=== PATIENT | male | born 1980 | race African-American/Black ===

== ENCOUNTER 2024-11-19 18:07 | Outpatient (BNV) | payer MEDICAID, SELFPAY | END 2024-11-25 11:15 | PROVIDERS: Admitting Provider Psychiatry & Neurology Psychiatry; Visit Provider Psychiatry & Neurology Neurology | DX: G40.909 Epilepsy, unspecified, not intractable, without status epilepticus (principal) | CPT/HCPCS: 95816 ==

== ENCOUNTER 2024-11-19 18:07 | Inpatient (IN) | payer OTHER, SELFPAY ==
--- NOTE | ~2024-11-19 | XR_ITS ---
CLINICAL HISTORY: s p fall 3 views sacrum and coccyx Comparison: None provided Findings No acute fractures. SI joints maintained. Pelvic rings are intact. No significant degenerative change. No erosions. IMPRESSION: No acute findings This document has been electronically signed by: Tania Beyer MD on 11/23/2024 04:24:11
--- NOTE | ~2024-11-19 | CT_ITS ---
CLINICAL HISTORY: s p fall CT cervical spine without contrast Comparison: None provided Findings: Straightening of the normal cervical lordosis. Multilevel disc height loss with reactive endplate change and osteophyte formation greatest at C3-4 and C4-5. No acute fractures or dislocations. Visualized intracranial contents are unremarkable. Soft tissues of the neck are normal. No consolidation or effusion at the lung apices. IMPRESSION: Degenerative change of the upper/mid cervical spine. No acute fracture identified. This document has been electronically signed by: Tania Beyer MD on 11/23/2024 04:53:59
--- NOTE | ~2024-11-19 | XR_ITS ---
CLINICAL HISTORY: s p fall 3 views lumbar spine Comparison: None provided Findings: Normal vertebral body alignment. No acute fractures or dislocation. Mild disc height loss at L1-2 with reactive endplate changes. IMPRESSION: No acute alignment abnormalities or vertebral body height loss. Degenerative changes in the upper lumbar spine. This document has been electronically signed by: Tania Beyer MD on 11/23/2024 04:24:17
--- NOTE | ~2024-11-19 | XR_ITS ---
CLINICAL HISTORY: s p fall 3 views thoracic spine Comparison: None provided Findings: Normal vertebral body alignment. No acute fractures or dislocation. Multilevel disc height loss with reactive endplate change. IMPRESSION: Mild multilevel degenerative change. No vertebral body height loss. This document has been electronically signed by: Tania Beyer MD on 11/23/2024 04:19:27
--- NOTE | ~2024-11-19 | CT_ITS ---
CLINICAL HISTORY: s p fall CT head without contrast Comparison: None provided Findings: No intra-axial mass, midline shift, hydrocephalus, or acute hemorrhage. No significant atrophy-like change or white matter disease. The visualized paranasal sinuses and mastoid air cells are normal. The orbits are unremarkable. There is no acute fracture. IMPRESSION: 1. No acute intracranial findings. This document has been electronically signed by: Tania Beyer MD on 11/23/2024 04:28:17
--- OUTSIDE RECORDS SUMMARY | 2024-11-19 18:12 | XMS_ITS | Clinical Summary ---
Author Organization [address] Address [address] [place] [address] Phone Care Team Providers Care Research Physician Name Role Phone Sue Rutherford NP Primary Care Provider [phone] Allergies Active Allergy Reactions Criticality Noted Date Comments [place] [facility] Shock 10/15/2023 Penicillins Anaphylaxis High 10/15/2023 Risperidone Hives High 10/15/2023 Tramadol Hives High 10/15/2023 Hydrocodone-Acetaminophen Hives High 10/15/2023 Medications blood-glucose meter device Use as directed. 1 each 4 Active insulin syringes, disposable, 1 mL syringe Use as directed. 50 each 4 Active insulin glargine (LANTUS) 100 unit/mL vial Inject 25 Units under the skin nightly. 10 mL 4 Active divalproex (DEPAKOTE ER) 500 mg 24 hr extended release tablet Take 1 tablet (500 mg total) by mouth 2 (two) times daily. 60 tablet 4 Active omeprazole (PRILOSEC) 20 mg capsule Take 1 capsule (20 mg total) by mouth daily. 30 capsule 4 Active atorvastatin (LIPITOR) 20 mg tablet Take 1 tablet (20 mg total) by mouth daily. 30 tablet 4 Active folic acid (FOLVITE) 1 mg tablet Take 1 tablet (1 mg total) by mouth daily. 30 tablet 4 Active gabapentin (NEURONTIN) 400 mg capsule Take 1 capsule (400 mg total) by mouth 2 (two) times daily with breakfast and dinner. 60 capsule 4 Active Additional Information Patient taking differently:400 mg Oral3 Times Daily With Meals, Reported on 01/06/2024 sertraline (ZOLOFT) 50 mg tablet Take 1 tablet (50 mg total) by mouth daily. 30 tablet 4 Active thiamine (VITAMIN B1) 100 mg tablet Take 1 tablet (100 mg total) by mouth daily. 30 tablet 4 Active albuterol sulfate (PROAIR HFA) 90 mcg/actuation HFA aerosol inhaler Inhale 2 puffs into the lungs every 6 (six) hours as needed for wheezing. Active baclofen (LIORESAL) 20 mg tablet Take 1 tablet (20 mg total) by mouth 3 (three) times daily. 4 Active chlorproMAZINE (THORAZINE) 50 mg tablet Take 3 tablets (150 mg total) by mouth 2 (two) times daily. 0800 & 1600 4 Active lisinopriL (PRINIVIL,ZESTR IL) 5 mg tablet Take 1 tablet (5 mg total) by mouth daily. 4 Active hydrOXYzine (VISTARIL) 50 mg capsule Take 1 capsule (50 mg total) by mouth 4 (four) times daily as needed. Active metFORMIN (GLUCOPHAGE) 500 mg Immediate Release tablet Take 1 tablet (500 mg total) by mouth 2 (two) times daily with breakfast and dinner. 4 Active cholecalciferol , vitamin D3, 50 mcg (2,000 unit) tablet Take 1 tablet (2,000 Units total) by mouth daily. Active magnesium oxide (MAG-OX) 400 mg (241.3 mg magnesium) tablet Take 1 tablet (400 mg total) by mouth daily. 4 Active Active Problems Problem Noted Date Diagnosed Date Alcohol withdrawal delirium, acute, hyperactive (HC Code) 01/15/2024 Abdominal pain 01/15/2024 Diabetes mellitus (HC Code) 01/15/2024 Cocaine abuse 01/07/2024 Schizoaffective disorder, depressive type (HC Co de) 01/07/2024 Alcohol abuse 01/07/2024 Chest pain, unspecified type 12/12/2023 Polysubstance use disorder 12/12/2023 Primary hypertension 12/12/2023 HOCM (hypertrophic obstructive cardiomyopathy) ( HC Code) 12/12/2023 Chest pain 12/06/2023 Colitis 11/29/2023 Alcohol dependence with withdrawal 10/15/2023 Resolved Problems Problem Noted Date Diagnosed Date Resolved Date MDD (major depressive disord er), recurrent episode, moderate (HC Code) 01/06/2024 01/07/2024 Schizophrenia 01/06/2024 01/07/2024 PTSD (post-traumatic stress disorder) 12/14/2023 01/07/2024 Family History Relation Name Status Comments Sister Alive Social History Tobacco Use Types Packs/Day Years Used Date Smoking Tobacco: Former Cigarettes Tobacco Cessation:Counseling Given: Not Answered Alcohol Use Standard Drinks/Week Comments Yes 4 (1 standard drink = 0.6 oz pur e alcohol) [facility] Neokineticsities Answer Date Recorded In the past 12 months has [employer], gas, oil, or water [employer] threatened to shut off services in your home? No 01/16/2024 AUDIT-C Answer Date Recorded Q1: How often do you have a drink containing alcohol? 4 or more times a week 01/16/2024 Q2: How many drinks containi ng alcohol do you have on a typical day when you are drinking? 3 or 4 Q3: How often do you have si x or more drinks on one occasion? Weekly 01/16/2024 PHQ-2 Answer Date Recorded PHQ-2 Total Score 0 01/16/2024 Hunger Vital Sign Answer Date Recorded Within the past 12 months, y ou worried that your food would run out before you got the money to buy more. Never true 01/16/20 24 Within the past 12 months, t he food you bought just didn't last and you didn't have money to get more. Never true 01/16/2024 PRAPARE - Transportation Answer Date Re corded In the past 12 months, has l ack of transportation kept you from medical appointments or from getting medications? No 01/05 In the past 12 months, has l ack of transportation kept you from meetings, work, or from getting things needed for daily living? No 01/16/2024 Housing Stability Answer Date Recorded What is your living situation today? I have a [facility] place to live 01/16/2024 Housing Stability Not on file 01/16/2024 Interpersonal Safety Answer Date Record ed Is there anyone in your life that is hurting or threatening you in anyway? no 01/16/2024 Physical Indicators of Abuse No evidence of phys ical abuse 01/16/2024 Sex and Gender Information Value Date Recorded Sex Assigned at Male 01/06/2024 1:26 AM EDT Legal Sex Male 1:26 AM EDT Gender Identity Male 01/06/2024 1:26 AM EDT Sexual Orientation Straight 01/06/2024 1: 26 AM EDT Last Filed Vital Signs Vital Sign Reading Time Taken Comments Blood Pressure 111/71 01/21/2024 5:33 AM EDT Pulse 94 01/21/2024 5:33 AM EDT Temperature 36.7 C (98.1 F) 01/21/2024 5:33 AM EDT Respiratory Rate 18 01/21/2024 5:33 AM EDT Oxygen Saturation 97% 01/21/2024 5:33 AM EDT Inhaled Oxygen Concentration - - Weight 104.3 kg (230 lb) 01/16/2024 3:41 PM EDT Height 185.4 cm (6' 1 ) 01/16/2024 3:41 PM EDT Body Mass Index 30.34 01/16/2024 3:41 PM EDT Plan of Treatment Health Maintenance Due Date Last Done Comments Diabetic eye exam 07/25/1989 Diabetic foot exam 07/25/1989 Urine Microalbumin 07/25/1989 Hepatitis B vaccine series ( 1 of 3 - 19+ 3-dose series) 07/25/1998 Pneumococcal Vaccine (2 - 49 years) (1 of 2 - PCV) 07/25/1998 Tetanus adult (Td q 10,TDAP once) 1999 Covid-19 vaccine series ( - 2023- season) 2024 Hemoglobin A1C 07/15/2024 01/16/2024, 11/09/2023, 10/15/2023 Colon cancer screening, Colonoscopy 07/25/2024 LDL monitoring 10/14/2024 10/15/2023 Influenza vaccine 01/05/2025 RSV Immunization (1 - 1-dose 75+ series) 07/25/2054 Hepatitis C screening Completed 12/18/2023 HIV screening Completed 12/19/2023 Meningococcal Vaccine Aged Out No donta janice eligible based on patient's age to complete this topic Procedures Procedure Name Priority Date/Time Associated Diagnosis Comments HEMOGLOBIN A1C Routine 01/16/2024 5:47 AM EDT HIV-1/HIV-2 ANTIBODY/ANTIGEN SCREEN W/REFLEX (BH GH LMW YH) Routine 12/19/2023 4:37 AM EDT HEPATITIS C AB WITH REFLEX TO HCV PCR Urgent 12/18/2023 4:33 PM EDT LIPID PANEL Add-On 10/15/2023 4:00 PM EDT from Last 3 Months or Most Recently Relevant to Health Maintenance Results * (ABNORMAL) Hemoglobin A1c (01/16/2024 5:47 AM EDT) Hemoglobin A1c 8.6(H) 4.0 - 5.6 % 01/16/2024 12:07 PM [facility] Comment: Hemoglobin A1c values of 5.7-6.4 % identify individuals with an increased risk for future diabetes and to whom the term pre-diabetes may be applied. Hemoglobin A1c values greater than 6.4% on more than one occasion are diagnostic of diabetes. Lowering HbA1c to below 7% is considered to reduce microvascular and neuropathic complications of diabetes. This boronate affinity Hb A1c method provides accurate analytical results in the presence of nearly all Hb variants. Hb F higher than 10% of total Hb may yield falsely low results. Conditions that shorten red cell survival, such as the presence of unstable hemoglobins like Hb SS, Hb CC, and Hb SC, or other causes of hemolytic anemia may yield falsely low results. Iron deficiency anemia may yield falsely high results. Estimated Average Glucose mg/dL 200 mg/dL 01/16/2024 12:07 PM [facility] Comment: Estimated average glucose (eAG) is a calculated value designed to estimate the expected average blood glucose level throughout the day from a single measurement of glycated hemoglobin A1C (HbA1c) and follows the calculation proposed by the [place] [employer] (Diabetes Care 31: 1-6, 2008). It may have less accuracy in children, women and patients with certain erythrocyte disorders. Blood Venipuncture / Unknown 01/16/2024 5:47 AM EDT 01/16/2024 5:55 AM EDT Edilma Meadows MD LAB BLOOD ORDERABLES Final Res ult [address] [phone] * HIV-1/HIV-2 antibody/antigen screen w/reflex ([facility]) (12/19/2023 4:37 AM EDT) HIV 1 and 2 Antibody/Antigen Screen Negative Negative 12/19/2023 8:38 AM EDT [facility] Comment:Interpretation: This specimen is HIV antibody and antigen negative. A negative test does not exclude the possibility of infection with HIV. If suspicion is high, submit a sample for HIV nucleic acid testing. Negative results may be seen in early infection, advanced AIDS and agammaglobulinemic patients, among others. Antiretroviral drugs taken for treatment and prophylaxis may limit the ability of diagnostic tests to detect HIV infection. The performance of this assay has not been clinically validated in patients less than 2 years old. Blood Venipuncture / Unknown 12/19/2023 4:37 AM EDT 12/19/2023 5:27 AM EDT Leonard Sen MD LAB BLOOD ORDERABLES Berkley l Result Performing Organization Address City/[facility]/ZIP Co de Phone Number [facility] [address] [place] [address] * Hepatitis C Ab with reflex to HCV PCR (12/18/2023 4:33 PM EDT) Hepatitis C Antibody Negative Negative 12/18/2023 7:10 PM EDT [facility] Comment:A negative result do es not exclude HCV infection, since antibodies are not detectable for 4-8 weeks after initial infection, or may not develop in compromised hosts. In high-risk individuals, repeat antibody testing in 2 months and/or HCV RNA PCR should be considered. Blood Venipuncture / Unknown 12/18/2023 4:33 PM EDT 12/18/2023 4:50 PM EDT us Leonard Sen MD LAB BLOOD ORDERABLES Berkley jordy Result [facility] [address] [place] [address], [facility] [phone] * (ABNORMAL) Lipid panel (10/15/2023 4:00 PM EDT) Cholesterol 185 See Comment mg/dL 10/16/2023 12:49 AM [facility] Comment: Total Cholesterol (mg/dL) Adults (>18 years) Children (<18 years) Desirable <200 <170 Borderline-High 200-239 170-199 High >=240 >=200 HDL 37(L) >=40 mg/dL 10/16/2023 12:49 AM [facility] Triglycerides 228(H) See Comment mg/dL 10/16/2023 12:49 AM [facility] Comment: Triglycerides (mg/dL) Adults (>18 years) Children (<18 years) Desirable <150 Not Established Borderline-High 150-199 Not Established High 200-499 Not Established Chol/HDL Ratio 5.0 0.0 - 5.0 10/16/2023 12:49 AM [facility] LDL Calculated 108(H) See Comment mg/dL 10/16/2023 12:49 AM [facility] Comment: Effective 10/12/2021, LDL is calculated using the Galaviz-JUNI equation, which is more accurate than the Friedewald and Jace-Phillips equations. LDL Cholesterol (mg/dL) Adults (>18 years) Children (<18 years) Desirable <100 <110 Above Desirable 100-129 Not Established Borderline-High 130-159 110-129 High 160-189 >=130 Very High >=190 Not Established Blood Venipuncture / Unknown 10/15/2023 4:00 PM EDT 10/15/2023 4:[address] [facility] Otilio Price MD LAB BLOOD ORDERABLES Final Result [address] [phone] from Last 3 Months or Most Recently Relevant to Health Maintenance Insurance [place] Advance Directives * Full Code (Latest Code Status on File) Date Activated Date Inactivated Comments 01/15/2024 10:02 PM 01/21/2024 5:41 PM * Full Code Date Activated Date Inactivated Comments 12/18/2023 7:14 PM 12/21/2023 2:56 PM * Full Code Date Activated Date Inactivated Comments 12/12/2023 2:26 PM 12/15/2023 3:17 PM Question Answer Comments With Whom was the Code Status Discussed? Patient * Full Code Date Activated Date Inactivated Comments 12/06/2023 3:48 AM 12/07/2023 8:50 PM * Full Code Date Activated Date Inactivated Comments 11/29/2023 8:35 PM 12/01/2023 7:37 PM Care Teams Research Physician Relationship Specialty Start Date End Date Sue Rutherford NP [address] [place] [address] PCP - General 11/13/23
[2024-11-19 20:07] VITALS: BP 86/54; PULSE 56; RESP 14; TEMP 37; O2SAT 99
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
--- NOTE | 2024-11-19 20:54 | PM.EVENT ---
Event Note Date of Service: 11/19/24 Event Note: Urgent hospitalist consult placed due to hypotension and lethargy. Patient was just transferred to on a CV at 17:00 from [facility] for the treatment of SI and increasing AH and VH. When he presented to [facility] he was complaining of chest pain radiates to the neck and left arm secondary to cocaine use (8 g intranasally and via smoking), he was medically cleared but expressed SI, and auditory/visual hallucinations. Upon arrival to the unit at 18:00 the patient was extremely sedated, he received Thorazine, Valium, Depakote, gabapentin, lisinopril, Zoloft and metformin at 13:30 prior to transport. The patient reports that he does not remember being transferred here at all, does not know what type of transportation was used and does not know if he walked onto the unit or was brought via wheelchair or stricture. Overall the patient is feeling better now and blood pressure has improved, recent vital signs 114/67, O2 97%, pulse 106. He is complaining of blurry vision and nausea. POC 181. Reviewed chart from [facility], labs from yesterday normal including CBC and BMP. The patient is concerned that he may have had a seizure prior to arrival, he reports that he feels post-ictal. He reports in the past he has had absence seizures as well as convulsive seizures. He denies any fever, chills, vomiting, diarrhea, abd pain, URI sx or urinary sx at this time. PE: alert and oriented to person, place and time able to move all extremities abnormal EOMS with finger tracking, eyes roll with hortizontal movement. PERRL Pt hemodynamically stable at this time. no need for transfer to the floor. continue with depakote and gabapentin for anti-seizure meds. will order neuro consult for AM and morning team to follow with full admission H&P. pt management discussed with Dr Milton. Time Spent With Patient Time: Total time managing care of this patient today ____ minutes.
[2024-11-19 20:56] LABS: Glucose, Whole Blood 171 mg/dL (60-115)
[2024-11-19 20:56] LABS: Glucose, Whole Blood 181 mg/dL (60-115)
[2024-11-19] MEDS: Insulin Glargine,Hum.rec.anlog 100 UNIT/ML 10 ML VIAL 30 UNIT SUBCUT (21:56)
[2024-11-20 07:00] VITALS: BMI 23.4
[2024-11-20 08:00] VITALS: BP 131/73; PULSE 98; TEMP 36.4; O2SAT 99
[2024-11-20 08:16] LABS: Glucose, Whole Blood 211 mg/dL (60-115)
[2024-11-20 09:00] VITALS: BP 131/73
[2024-11-20 09:14] LABS: Hemoglobin A1C 200.8094 umol/L; Total Hemoglobin (HGBA1C) 3783.7647 umol/L
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
[2024-11-20 09:36] LABS: Alanine Aminotransferase 19 U/L (0-40); Albumin Level 4.6 g/dL (3.5-5.0); Alkaline Phosphatase 114 U/L (39-117); Anion Gap 16 (12-20); Aspartate Amino Transferase 35 U/L (5-37); Blood Urea Nitrogen 13 mg/dL (9-16); Calcium 9.5 mg/dL (8.4-10.2); Carbon Dioxide 24 mmol/L (22-29); Chloride 103 mmol/L (96-108); Cholesterol 180 mg/dL (<200); Estimated Glomerular Filt Rate > 60; HDL Cholesterol 62 mg/dL (>40); Potassium 4.1 mmol/L (3.3-5.1); Sodium 139 mmol/L (135-145); Total Protein 7.6 g/dL (6.5-8.0); Triglycerides 75 mg/dL (<150)
[2024-11-20 09:47] LABS: Free T4 (Free Thyroxine) 0.97 ng/dL (0.71-1.85); Thyroid Stimulating Hormone 0.46 uIU/mL (0.32-4.0)
--- NOTE | 2024-11-20 10:15 | P.CNNE_ITS ---
History of Present Illness Data of Consult Service Date: 11/20/24 Primary Care Provider: Unknown Physician HPI Reason for consult: seizure disorder 44 years old man originally from [place] but has been living in [facility] for about 20 years there is family residing. He has complicated medical and psychiatric history including polydrug abuse and probably alcohol related to drug related seizure disorder. He said that he was also seeing a neurologist in [place] for some brain lesions and neuropathy. According to him, seizure started about 6 years ago and he was not sure how often there were happening and what exactly happened during the seizure. He said that he might have passed out during the seizure. Witnesses account was not available. He could not recall having an EEG in recent years. Presently, he was not having any headache. Review of Systems 2 Review of Systems: No recent headache or cold or flu-like illness PMFSH Social History Social History Household Members: None Housing: Homeless Do you presently have visiting nurse or other home services: No Patient Tobacco Use Status: Current everyday Tobacco user Tobacco use type: Cigarette Cigarette Packs Per Day: 1 Cigarettes Per Day: 20.0 Years Smoked: 15 Smoked in Last 30 Days: Yes e-Cigarette/Vaping Use: Never Used Patient Interested in Nicotine Replacement: No Patient Given Instructions on How to Stop Smoking: No Second Hand Smoke Exposure: No Currently Displaying Signs/Symptoms of Drug Intoxication Withdrawal: No Have you been hit, kicked, punched, or otherwise hurt by someone within the past year? If so, by whom?: No Do you feel safe in your current relationship?: Yes Is there a partner from a previous relationship who is making you feel unsafe now?: No Are you made to feel afraid or neglected: No Advance Directives: No Advance Directives Information Provided: No Do you have thoughts of harming others: None Do you have a plan to hurt others: No Plan Recently lost weight without trying: No Eating poorly because of decreased appetite: No Nutrition Risks: No Nutritional Risk Poor oral hygiene: No Meds Allergies Allergy/AdvReac Type Severity Reaction Status Date / Time amitriptyline Allergy Unknown Verified 11/19/24 18:57 M[place]in[place] And Derivatives Allergy Anaphylaxis Verified 11/19/24 18:57 egg Allergy Vomiting Verified 11/19/24 18:57 hydrocodone Allergy Hives Verified 11/19/24 18:57 ondansetron Allergy Itching Verified 11/19/24 18:57 Penicillins Allergy Anaphylaxis Verified 11/19/24 18:57 quetiapine Allergy Unknown Verified 11/19/24 18:57 risperidone Allergy Hives Verified 11/19/24 18:57 topiramate (From Topamax) Allergy Hives Verified 11/19/24 18:57 tramadol Allergy Anaphylaxis Verified 11/19/24 18:57 trazodone Allergy Difficulty Verified 11/19/24 18:57 Breathing diphth,pert AdvReac Muscle Verified 11/19/24 18:57 (acell),tet,polio,Haem cramps Active Medications: Current Medications Acetaminophen (Acetaminophen 325 Mg Tablet) 650 mg PO Q6H PRN PRN Reason: Headache/Pain, Scale 1-10 Al Hydroxide/Mg Hydroxide (Magnesium Hydrox/Alum Hydrox 30 Ml Oral.Susp) 30 ml PO Q6H PRN PRN Reason: Heartburn/Nausea Chlorpromazine HCl (Chlorpromazine Hcl 25 Mg Tablet) 25 mg PO DAILY [facility] Last Admin: 11/20/24 09:01 Dose: 25 mg Chlorpromazine HCl (Chlorpromazine Hcl 25 Mg Tablet) 50 mg PO BEDTIME [facility] Dextrose (Dextrose 50 % 25 Gm/50 Ml Syringe) 25 gm IVPUSH Q15M PRN; Protocol PRN Reason: per Hypoglycemia Standing Ord. Divalproex Sodium (Divalproex Sodium Er 500 Mg Tab.Er.24h) 1,000 mg PO DAILY [facility] Last Admin: 11/20/24 08:59 Dose: 1,000 mg Doxepin HCl (Doxepin Hcl 25 Mg Capsule) 25 mg PO BEDTIME [facility] Gabapentin (Gabapentin 400 Mg Capsule) 400 mg PO TID [facility] Last Admin: 11/20/24 09:00 Dose: 400 mg Glucose (Glucose Gel 15 Gm Gel..Gram.) 15 gm PO Q15M PRN; Protocol PRN Reason: per Hypoglycemia Standing Ord. Hydroxyzine HCl (Hydroxyzine Hcl 25 Mg Tablet) 25 mg PO Q6H PRN PRN Reason: mild anxiety Insulin Glargine (Insulin Glargine,Hum.Rec.Anlog 100 Unit/Ml 10 Ml Vial) 30 unit SUBCUT BEDTIME [facility] Last Admin: 11/19/24 21:56 Dose: 30 unit Insulin Human Lispro (Insulin Lispro 100 Unit/Ml 3 Ml Vial) 0 unit SUBCUT QIDACHS [facility]; Protocol Last Admin: 11/20/24 09:02 Dose: 4 unit Lisinopril (Lisinopril 5 Mg Tablet) 5 mg PO DAILY [facility]; Protocol Last Admin: 11/20/24 09:00 Dose: 5 mg Lorazepam (Lorazepam 1 Mg Tablet) 1 mg PO Q2H PRN PRN Reason: CIWA 8-11 Last Admin: 11/20/24 09:00 Dose: 1 mg Lorazepam (Lorazepam 1 Mg Tablet) 2 mg PO Q2H PRN PRN Reason: CIWA 12-15 Lorazepam (Lorazepam 1 Mg Tablet) 3 mg PO Q2H PRN PRN Reason: CIWA > 15, and call MD Magnesium Hydroxide (Milk Of Magnesia 30 Ml Oral.Susp) 30 ml PO DAILY PRN PRN Reason: Constipation Metformin HCl (Metformin Hcl 1,000 Mg Tablet) 1,000 mg PO BIDWM [facility] Last Admin: 11/20/24 08:59 Dose: 1,000 mg Nicotine (Nicotine 21 Mg Patch.Td24) 21 mg TRANSDERMA DAILY PRN PRN Reason: nicotine craving Nicotine Polacrilex (Nicotine Polacrilex 2 Mg Gum) 2 mg BUCCAL Q2H PRN PRN Reason: Nicotine Cravings Ondansetron HCl (Ondansetron Odt 4 Mg Tab.Rapdis) 4 mg TRANSLINGU Q6H PRN PRN Reason: Nausea and Vomiting Sertraline HCl (Sertraline Hcl 50 Mg Tablet) 50 mg PO DAILY [facility] Last Admin: 11/20/24 09:01 Dose: 50 mg Thiamine HCl (Thiamine Hcl 100 Mg Tablet) 100 mg PO DAILY [facility] Last Admin: 11/20/24 08:59 Dose: 100 mg Home Medications ?Medication ?Instructions ?Recorded ?Confirmed ?Last Taken ?Type chlorpromazine 25 mg tablet 25 mg PO QAM 11/19/2411/0411/19/24 13:41 History 50 chlorpromazine 50 mg tablet 50 mg PO QPM 11/19/2411/04 Unknown History divalproex 500 mg tablet,extended 1,000 mg PO QAM 11/0411/19/24 11/19/24 13:17 History release 24 hr (Depakote ER) 1000 doxepin 25 mg capsule 25 mg PO BEDTIME 11/19/24 Unknown History gabapentin 400 mg capsule 400 mg PO TID 11/19/2411/1911/19/24 13:18 History lisinopril 5 mg tablet 5 mg PO DAILY 11/19/2411/1911/19/24 13:18 History metformin 1,000 mg tablet 1,000 mg PO BID 11/19/2411/19/24 13:18 History sertraline 50 mg tablet 50 mg PO DAILY 11/19/2411/0411/19/24 13:18 History Physical Exam 2 Vital Signs: Vital Signs: Last Vital Signs Temp 98.6 F 11/19/24 20:07 Pulse 56 11/19/24 20:07 Resp 14 11/19/24 20:07 BP 131/73 11/20/24 09:00 Pulse Ox 99 11/19/24 20:07 O2 Del Method Room Air 11/19/24 20:07 Neuro: Other: Mental Status: Alert and oriented to person, place, and time. Normal attention. Normal spontaneous speech, fluency, and comprehension. Affect is appropriate. Cranial Nerves: CN II: Visual wong full to confrontation, visual acuity intact. CN III, IV, : Pupils equal, round, reactive to light and accommodation. Extraocular movements are normal. CN V: Facial sensation is normal. CN VII: Facial movements symmetrical. CN VIII: Hearing intact to bedside conversation is normal. CN IX, X: Palate elevates symmetrically. CN XI: Shoulder shrug and head turn symmetrical. CN XII: Tongue midline without atrophy or fasciculations. deep tendon reflexes are trace to absent. Plantars are flexor. His walking in a cautious gait with a walker. Extrapyramidal: Full facial expressions and blinking. No rigidity. Movements are appropriate with no tremor or abnormality. Speech: Normal; no dysarthria or tremor. Results Labs 11/20/24 08:24 Labs: [facility] 11/20/24 08:24 Sodium 139 Potassium 4.1 Chloride 103 Carbon Dioxide 24 BUN 13 Creatinine 0.84 Calcium 9.5 Liver Function 11/20/24 Range/Units 08:24 Total Bilirubin 0.2 (0.0-1.0) mg/dL AST 35 (5-37) U/L ALT 19 (0-40) U/L Alkaline Phosphatase 114 (39-117) U/L Albumin 4.6 (3.5-5.0) g/dL Assessment and Plan (1) Seizure disorder: Status: Acute 44 years old man with complicated medical history including polydrug abuse and diagnosis of psychotic disorder reported that he has been having seizures for few years. According to him, he also has been seeing a neurologist in [place] and has been investigated. Compared to general population of his age group, his risk of seizure disorder was higher. My recommendation is to obtain a screening EEG and consider treatment if epileptic discharges are confirmed. Otherwise, it is better for him to see his regular neurologist in [place] to have full evaluation regular follow-up. Procedures Date of Service Date of Service: 11/20/24
--- NOTE | 2024-11-20 10:43 | HO.PM.IMCN ---
History of Present Illness Data of Consult Service Date: 11/20/24 Primary Care Provider: Unknown Physician HPI Reason for consult: Medical H&P 44-year-old male with a past medical history of PTSD, ADHD, ADD, GERD, bipolar disorder, schizoaffective disorder, cardiomyopathy, AFIB, EtOH abuse, hypertension, insulin-dependent diabetes, neuropathy, cocaine use disorder, restless legs syndrome, and seizure disorder presented to [facility] for treatment of suicidal ideation and increasing auditory and visual hallucinations. Patient initially presented to ED with chest pain in the setting of cocaine and alcohol use as well. His EKG was unchanged from baseline his labs were reassuring his initial troponin was 36 and a repeat was 27, chest x-ray was negative, ACS ruled out. Patient arrived to the unit at 18:00 yesterday extremely sedated, he had notably received Thorazine, Valium, Depakote, gabapentin, and Zoloft prior to transport. On exam he appears to be awake and alert. His blood pressure is stable. Patient reports that he had a seizure a couple of weeks ago, he was drinking daily 3-4 pt of hard liquor. Reports his last drink was 2 days ago. He is on CIWA protcol. Scored 8 on CIWA this morning, received dose of ativan. Reports history of neuropathy, uses a walker. Reports that he becomes completely paralyzed at times. He denies any shortness of breath, dizziness, lightheadedness, CP, abdominal pain or other concerning symptoms. He denies any headaches, visual changes. Reports that he is hungry. Review of Systems Review of Systems: Denies any shortness of breath, chest pain, dizziness, lightheadedness, abdominal pain or discomfort, nausea vomiting or diarrhea. PMFSH Social History Household Members: None Housing: Homeless Do you presently have visiting nurse or other home services: No Patient Tobacco Use Status: Current everyday Tobacco user Tobacco use type: Cigarette Cigarette Packs Per Day: 1 Cigarettes Per Day: 20.0 Years Smoked: 15 Smoked in Last 30 Days: Yes e-Cigarette/Vaping Use: Never Used Patient Interested in Nicotine Replacement: No Patient Given Instructions on How to Stop Smoking: No Second Hand Smoke Exposure: No Currently Displaying Signs/Symptoms of Drug Intoxication Withdrawal: No Have you been hit, kicked, punched, or otherwise hurt by someone within the past year? If so, by whom?: No Do you feel safe in your current relationship?: Yes Is there a partner from a previous relationship who is making you feel unsafe now?: No Are you made to feel afraid or neglected: No Advance Directives: No Advance Directives Information Provided: No Do you have thoughts of harming others: None Do you have a plan to hurt others: No Plan Recently lost weight without trying: No Eating poorly because of decreased appetite: No Nutrition Risks: No Nutritional Risk Poor oral hygiene: No Meds Allergies Allergy/AdvReac Type Severity Reaction Status Date / Time amitriptyline Allergy Unknown Verified 11/19/24 18:57 [place] And Derivatives Allergy Anaphylaxis Verified 11/19/24 18:57 egg Allergy Vomiting Verified 11/19/24 18:57 hydrocodone Allergy Hives Verified 11/19/24 18:57 ondansetron Allergy Itching Verified 11/19/24 18:57 Penicillins Allergy Anaphylaxis Verified 11/19/24 18:57 quetiapine Allergy Unknown Verified 11/19/24 18:57 risperidone Allergy Hives Verified 11/19/24 18:57 topiramate (From Topamax) Allergy Hives Verified 11/19/24 18:57 tramadol Allergy Anaphylaxis Verified 11/19/24 18:57 trazodone Allergy Difficulty Verified 11/19/24 18:57 Breathing diphth,pert AdvReac Muscle Verified 11/19/24 18:57 (acell),tet,polio,Haem cramps Active Medications: Current Medications Acetaminophen (Acetaminophen 325 Mg Tablet) 650 mg PO Q6H PRN PRN Reason: Headache/Pain, Scale 1-10 Al Hydroxide/Mg Hydroxide (Magnesium Hydrox/Alum Hydrox 30 Ml Oral.Susp) 30 ml PO Q6H PRN PRN Reason: Heartburn/Nausea Chlorpromazine HCl (Chlorpromazine Hcl 25 Mg Tablet) 25 mg PO DAILY [facility] Last Admin: 11/20/24 09:01 Dose: 25 mg Chlorpromazine HCl (Chlorpromazine Hcl 25 Mg Tablet) 50 mg PO BEDTIME [facility] Dextrose (Dextrose 50 % 25 Gm/50 Ml Syringe) 25 gm IVPUSH Q15M PRN; Protocol PRN Reason: per Hypoglycemia Standing Ord. Divalproex Sodium (Divalproex Sodium Er 500 Mg Tab.Er.24h) 1,000 mg PO DAILY [facility] Last Admin: 11/20/24 08:59 Dose: 1,000 mg Doxepin HCl (Doxepin Hcl 25 Mg Capsule) 25 mg PO BEDTIME [facility] Gabapentin (Gabapentin 400 Mg Capsule) 400 mg PO TID [facility] Last Admin: 11/20/24 09:00 Dose: 400 mg Glucose (Glucose Gel 15 Gm Gel..Gram.) 15 gm PO Q15M PRN; Protocol PRN Reason: per Hypoglycemia Standing Ord. Hydroxyzine HCl (Hydroxyzine Hcl 25 Mg Tablet) 25 mg PO Q6H PRN PRN Reason: mild anxiety Insulin Glargine (Insulin Glargine,Hum.Rec.Anlog 100 Unit/Ml 10 Ml Vial) 30 unit SUBCUT BEDTIME [facility] Last Admin: 11/19/24 21:56 Dose: 30 unit Insulin Human Lispro (Insulin Lispro 100 Unit/Ml 3 Ml Vial) 0 unit SUBCUT QIDACHS [facility]; Protocol Last Admin: 11/20/24 09:02 Dose: 4 unit Lisinopril (Lisinopril 5 Mg Tablet) 5 mg PO DAILY [facility]; Protocol Last Admin: 11/20/24 09:00 Dose: 5 mg Lorazepam (Lorazepam 1 Mg Tablet) 1 mg PO Q2H PRN PRN Reason: CIWA 8-11 Last Admin: 11/20/24 09:00 Dose: 1 mg Lorazepam (Lorazepam 1 Mg Tablet) 2 mg PO Q2H PRN PRN Reason: CIWA 12-15 Lorazepam (Lorazepam 1 Mg Tablet) 3 mg PO Q2H PRN PRN Reason: CIWA > 15, and call Magnesium Hydroxide (Milk Of Magnesia 30 Ml Oral.Susp) 30 ml PO DAILY PRN PRN Reason: Constipation Metformin HCl (Metformin Hcl 1,000 Mg Tablet) 1,000 mg PO BIDWM [facility] Last Admin: 11/20/24 08:59 Dose: 1,000 mg Nicotine (Nicotine 21 Mg Patch.Td24) 21 mg TRANSDERMA DAILY PRN PRN Reason: nicotine craving Nicotine Polacrilex (Nicotine Polacrilex 2 Mg Gum) 2 mg BUCCAL Q2H PRN PRN Reason: Nicotine Cravings Ondansetron HCl (Ondansetron Odt 4 Mg Tab.Rapdis) 4 mg TRANSLINGU Q6H PRN PRN Reason: Nausea and Vomiting Sertraline HCl (Sertraline Hcl 50 Mg Tablet) 50 mg PO DAILY [facility] Last Admin: 11/20/24 09:01 Dose: 50 mg Thiamine HCl (Thiamine Hcl 100 Mg Tablet) 100 mg PO DAILY [facility] Last Admin: 11/20/24 08:59 Dose: 100 mg Home Medications ?Medication ?Instructions ?Recorded ?Confirmed ?Last Taken ?Type chlorpromazine 25 mg tablet 25 mg PO QAM 11/19/24 11/19/24 11/19/24 13:41 History 50 chlorpromazine 50 mg tablet 50 mg PO QPM 11/19/24 11/19/24 Unknown History divalproex 500 mg tablet,extended 1,000 mg PO QAM 11/19/24 11/19/24 11/19/24 13:17 History release 24 hr (Depakote ER) 1000 doxepin 25 mg capsule 25 mg PO BEDTIME 11/19/24 11/19/24 Unknown History gabapentin 400 mg capsule 400 mg PO TID 11/19/24 11/19/24 11/19/24 13:18 History lisinopril 5 mg tablet 5 mg PO DAILY 11/19/24 11/19/24 11/19/24 13:18 History metformin 1,000 mg tablet 1,000 mg PO BID 11/19/24 11/19/24 11/19/24 13:18 History sertraline 50 mg tablet 50 mg PO DAILY 11/19/24 11/19/24 11/19/24 13:18 History Physical Exam Vital Signs and Narrative: Vital Signs: Last Vital Signs Temp 98.6 F 11/19/24 20:07 Pulse 56 11/19/24 20:07 Resp 14 11/19/24 20:07 BP 131/73 11/20/24 09:00 Pulse Ox 99 11/19/24 20:07 O2 Del Method Room Air 11/19/24 20:07 Alert and oriented X3, fair historian. Neuro: CN II-X11 intact, no deficits, visual acuity intact EYES: PERRLA, EOM intact ENT: Hearing intact, lips moist Cardiac: S1 S2 RRR, No ectopy Pulmonary: lungs clear to auscultation, No increased WOB. Abdominal: BS active in all 4 quadrants, no guarding or tenderness MSK: Strength 5/5 upper and lower extremities : Deferred Extremities: No edema in lower extremities. Gait steady Psych: mood stable, Quiet and cooperative. Skin: Warm and dry, Intact Results Labs 11/20/24 08:24 Labs: Laboratory Results - last 24 hr 11/19/24 11/19/24 11/20/24 18:36 20:51 08:12 Anion Gap Estim Creat Clear Calc Estimated GFR POC Glucose 171 H 181 H 211 H Random Glucose Estimat Average Glucose Hemoglobin A1c % Calcium Total Bilirubin AST ALT Alkaline Phosphatase Total Protein Albumin Triglycerides Cholesterol LDL Cholesterol, Calc HDL Cholesterol TSH Free T4 11/20/24 08:24 Anion Gap 16 Estim Creat Clear Calc TNP Estimated GFR > 60 POC Glucose Random Glucose 228 H Estimat Average Glucose 154 Hemoglobin A1c % 7.0 H Calcium 9.5 Total Bilirubin 0.2 AST 35 ALT 19 Alkaline Phosphatase 114 Total Protein 7.6 Albumin 4.6 Triglycerides 75 Cholesterol 180 LDL Cholesterol, Calc 103 H HDL Cholesterol 62 TSH 0.46 Free T4 0.97 Assessment and Plan (1) Seizure disorder: Status: Acute Plan 44-year-old male past medical history of schizophrenia, PTSD, bipolar, polysubstance use disorder, EtOH, insulin-dependent diabetes, hypertension hyperlipidemia, AFib, cardiomyopathy, seizure disorder, neuropathy and restless leg syndrome presented to ED initially for chest pain, reported SI, auditory and visual hallucinations, now admitted to for further psychiatric treatment. Schizophrenia/PTSD/bipolar/polysubstance use disorder Plan per psychiatric team Insulin-dependent type 2 diabetes Recent A1c 7.0 Continue Lantus at h.s. and sliding scale. Continue Metformin Blood sugars adjust as needed Renal function within normal limits Hypertension/hyperlipidemia Blood pressure stable on lisinopril 5 mg Continue atorvastatin AFib/Cardiomyopathy Rate controlled on metoprolol 200 mg daily Unclear why patient is on anticoagulation We will need Cardiology follow up at [facility] Patient had a new visit scheduled for September but he did not show up so we will need to be rescheduled. Seizure disorder Patient reports that he had an seizure related to ETOH withdrawal a few weeks ago Was seen by neurology recommendations appreciated Patient reports a history of seizures, on Depakote We will obtain baseline EEG, patient has a neurologist outpatient and can follow up. Neuropathy/RLS Ambulates with a walker at times Continue amantadine and gabapentin Thank you for allowing me to participate in the care of this patient. Signing off at this time. Please reconsult of any acute concerns or issues arise
[2024-11-20 12:01] LABS: Glucose, Whole Blood 109 mg/dL (60-115)
[2024-11-20 12:23] VITALS: BP 126/82; PULSE 102
[2024-11-20] MEDS: Metoprolol Succinate ER 100 MG TAB.ER.24H 200 MG PO (12:23)
[2024-11-20 18:39] LABS: Glucose, Whole Blood 157 mg/dL (60-115)
[2024-11-20 20:00] VITALS: BP 112/71; PULSE 88; RESP 18; TEMP 36.9; O2SAT 99
[2024-11-20 21:15] LABS: Glucose, Whole Blood 158 mg/dL (60-115)
[2024-11-20] MEDS: Insulin Glargine,Hum.rec.anlog 100 UNIT/ML 10 ML VIAL 30 UNIT SUBCUT (21:22)
[2024-11-21 08:00] VITALS: BP 91/53; PULSE 88; RESP 16; TEMP 36; O2SAT 100
[2024-11-21 08:17] LABS: Glucose, Whole Blood 160 mg/dL (60-115)
[2024-11-21] MEDS: Divalproex Sodium ER 250 MG TAB.ER.24H PO (08:55)
[2024-11-21 08:58] VITALS: BP 91/53; PULSE 88
[2024-11-21 12:21] LABS: Glucose, Whole Blood 111 mg/dL (60-115)
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
[2024-11-21 17:27] LABS: Glucose, Whole Blood 149 mg/dL (60-115)
[2024-11-21 20:00] VITALS: BP 115/71; PULSE 92; TEMP 36.4; O2SAT 99
[2024-11-21 20:18] LABS: Glucose, Whole Blood 146 mg/dL (60-115)
[2024-11-21] MEDS: Insulin Glargine,Hum.rec.anlog 100 UNIT/ML 10 ML VIAL 30 UNIT SUBCUT (20:27)
[2024-11-22 08:00] VITALS: BP 109/63; PULSE 86; RESP 18; TEMP 36.4; O2SAT 98
[2024-11-22 08:15] LABS: Glucose, Whole Blood 128 mg/dL (60-115)
[2024-11-22] MEDS: Metoprolol Succinate ER 100 MG TAB.ER.24H 200 MG PO (08:41)
[2024-11-22] MEDS: Divalproex Sodium ER 250 MG TAB.ER.24H PO (08:55)
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
[2024-11-22 11:56] LABS: Glucose, Whole Blood 154 mg/dL (60-115)
[2024-11-22 17:05] LABS: Glucose, Whole Blood 172 mg/dL (60-115)
[2024-11-22 19:33] VITALS: BP 110/64; PULSE 82; TEMP 36.4; O2SAT 99
[2024-11-22] MEDS: Insulin Glargine,Hum.rec.anlog 100 UNIT/ML 10 ML VIAL 30 UNIT SUBCUT (20:26)
[2024-11-22 23:42] LABS: Glucose, Whole Blood 199 mg/dL (60-115)
[2024-11-23 02:25] VITALS: BP 98/64; PULSE 66; RESP 16; TEMP 36.4; O2SAT 96
--- NOTE | 2024-11-23 03:56 | PC.NURSE ---
Addendum entered by Saskia Ndiaye RN 11/23/24 04:40: When the patient was examined after notification, this RN noted full range of motion and no noticeable deformities. Patient complained of 8/10 pain on the left side of his head and mid-back. He exhibited no distress at that time. Original Note: At approximately 0215, staff found this patient getting into his bed and noted he was unsteady. When they enquired if he was well, he told staff that he had fallen in his bathroom. He stated that his legs went out from under him, due to his neuropathy. He stated that he hit the left side of his head, and his back. VS were obtained: Temp (skin) 97.6, RR 16, HR 86, BP 98/64 (on the right upper arm while supine,) and 02 of 96% on room air. The patient has been incontinent of stool and may have been rushing due to urgency and fear of an episode of incontinence. Provider Girma notified at 0232, The Fire Crew Worker was notified at 0244. Provider Girma ordered multiple diagnostic images, which were obtained by 0345. Patient is currently resting comfortably in his bed, and fluids were encouraged due to his low blood pressure.
[2024-11-23 07:55] LABS: Glucose, Whole Blood 162 mg/dL (60-115)
[2024-11-23 08:00] VITALS: BP 102/63; PULSE 71; RESP 18; O2SAT 98
[2024-11-23] MEDS: Divalproex Sodium ER 250 MG TAB.ER.24H PO (08:18)
[2024-11-23] MEDS: Metoprolol Succinate ER 100 MG TAB.ER.24H 200 MG PO (08:19)
[2024-11-23 12:06] LABS: Glucose, Whole Blood 196 mg/dL (60-115)
--- NOTE | 2024-11-23 12:51 | MHC.RECOVRN ---
TW met with pt on M5 in group room C to offer support and resources per consult relating to ETOH and cocaine use. Pt was sitting in the kitchen area watching TV and drinking juice on approach and was agreeable to meeting.? Upon interview he reports continued ETOH withdrawal symptoms including poor sleep, anxiety, tremors and sweating. He reports his appetite is adequate.? He does report Ativan has been helping to manage his symptoms. Pt? also reports experiencing depression /, anxiety 02/13 ?because I?m just stuck in my head?? Pt states he was drinking 2-3 pints of vodka or mary daily and ?3-4 tall boys? for several years in addition to using 5-7 grams of cocaine intranasally for the same amount of time. He reports first etoh use at 14years old and first cocaine use at 26 years old ?because I was curious .? ? Pt reports 1 previous overdose in the community in which he required Narcan and was brought to a hospital. He is unsure of when this occurred.? He states he has been to multiple programs and detoxes including [facility], [facility] [place] [facility] but is unable to recall when or how long he was admitted. Pt does state he previously maintained 6years of sobriety from all substances. ?I just did it on my own?.? Pt has mental health history and current ipt for management of schizophrenia. Family history of the same was not addressed at this time.? Pt reports his goal is to abstain from cocaine and alcohol. He also wishes to attend [facility] after hospital discharge. Discussed option for medication management for AUD and pt is interested in starting Campral while inpatient. Pt provided an education sheet regarding ANTHONY and potential side effects. Pt reports he would like to begin taking ANTHONY.? Pt states he has good family support including his twin sister.? Recommendation to the provider is that the patient is interested in beginning Campral prior to leaving hospital.?Provider CAW notified and made aware. ACS to follow up regarding discharge planning and clinic for ANTHONY follow-up.?
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
[2024-11-23 16:57] LABS: Glucose, Whole Blood 129 mg/dL (60-115)
[2024-11-23 20:00] VITALS: BP 116/69; PULSE 88; RESP 16; TEMP 36.6; O2SAT 99
[2024-11-23] MEDS: Insulin Glargine,Hum.rec.anlog 100 UNIT/ML 10 ML VIAL 30 UNIT SUBCUT (21:15)
[2024-11-24 01:34] LABS: Glucose, Whole Blood 222 mg/dL (60-115)
[2024-11-24 07:56] LABS: Glucose, Whole Blood 153 mg/dL (60-115)
[2024-11-24] MEDS: Divalproex Sodium ER 250 MG TAB.ER.24H PO (08:19)
[2024-11-24 08:20] VITALS: BP 105/55; PULSE 84; RESP 16; TEMP 36.6; O2SAT 99
[2024-11-24] MEDS: Metoprolol Succinate ER 100 MG TAB.ER.24H 200 MG PO (08:21)
[2024-11-24 11:38] LABS: Glucose, Whole Blood 137 mg/dL (60-115)
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
[2024-11-24 17:18] LABS: Glucose, Whole Blood 188 mg/dL (60-115)
[2024-11-24 20:00] VITALS: BP 118/67; PULSE 94; RESP 16; TEMP 36.9
[2024-11-24 20:28] LABS: Glucose, Whole Blood 132 mg/dL (60-115)
[2024-11-24] MEDS: Insulin Glargine,Hum.rec.anlog 100 UNIT/ML 10 ML VIAL 30 UNIT SUBCUT (20:51)
--- NOTE | 2024-11-25 | EEG_ITS ---
This is a 16 channel EEG with an EKG lead. Patient is reported awake and drowsy during the tracing. Background EEG rhythm is low amplitude mixed beta alpha with frequent lead and muscle artifacts. Photic stimulation and hyperventilation were not performed. Cardiac lead does not reveal any significant abnormality. No sharp wave spikes or paroxysmal tendency noted. Impression: No significant abnormality noted on this EEG. MTDD
[2024-11-25 07:42] VITALS: BP 105/55; PULSE 70; TEMP 36.6; O2SAT 99
[2024-11-25 07:51] LABS: Glucose, Whole Blood 117 mg/dL (60-115)
[2024-11-25] MEDS: Metoprolol Succinate ER 100 MG TAB.ER.24H 200 MG PO (09:16)
[2024-11-25] MEDS: Divalproex Sodium ER 250 MG TAB.ER.24H PO (09:17)
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
[2024-11-25 12:18] LABS: Glucose, Whole Blood 89 mg/dL (60-115)
[2024-11-25] MEDS: OLANZapine ODT 10 MG TAB.RAPDIS TRANSLINGU ×2 (16:19→21:11)
[2024-11-25 17:14] LABS: Glucose, Whole Blood 170 mg/dL (60-115)
[2024-11-25 20:00] VITALS: BP 111/67; PULSE 88; TEMP 36.9; O2SAT 99
[2024-11-25 20:55] LABS: Glucose, Whole Blood 154 mg/dL (60-115)
[2024-11-25] MEDS: Insulin Glargine,Hum.rec.anlog 100 UNIT/ML 10 ML VIAL 30 UNIT SUBCUT (21:12)
[2024-11-26 03:14] LABS: Glucose, Whole Blood 147 mg/dL (60-115)
--- NOTE | 2024-11-26 03:25 | PC.NURSE ---
Patient has had an episode of bowel incontinence. Patient cleaned and he returned to his bed.
[2024-11-26 08:25] LABS: Glucose, Whole Blood 101 mg/dL (60-115)
[2024-11-26 08:50] VITALS: BP 100/58; PULSE 72; TEMP 36.9; O2SAT 98
[2024-11-26] MEDS: Metoprolol Succinate ER 100 MG TAB.ER.24H 200 MG PO (09:18)
[2024-11-26] MEDS: OLANZapine ODT 10 MG TAB.RAPDIS TRANSLINGU (09:19)
[2024-11-26] MEDS: Divalproex Sodium ER 250 MG TAB.ER.24H PO (09:19)
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
[2024-11-26 12:13] LABS: Glucose, Whole Blood 194 mg/dL (60-115)
[2024-11-26 16:59] LABS: Glucose, Whole Blood 258 mg/dL (60-115)
[2024-11-26 19:47] VITALS: BP 112/65; PULSE 84; O2SAT 98
[2024-11-26 20:16] LABS: Glucose, Whole Blood 274 mg/dL (60-115)
[2024-11-26] MEDS: Insulin Glargine,Hum.rec.anlog 100 UNIT/ML 10 ML VIAL 30 UNIT SUBCUT (20:35)
[2024-11-27 07:52] LABS: Glucose, Whole Blood 137 mg/dL (60-115)
[2024-11-27 08:13] VITALS: BP 119/72; PULSE 92; RESP 16; TEMP 36.4; O2SAT 98
[2024-11-27] MEDS: Metoprolol Succinate ER 100 MG TAB.ER.24H 200 MG PO (08:29)
[2024-11-27 08:30] LABS: Creatinine Clr Calc Pharmacy 121.8; Estimated Glomerular Filt Rate > 60
[2024-11-27] MEDS: Divalproex Sodium ER 250 MG TAB.ER.24H PO (08:30)
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
[2024-11-27 11:58] LABS: Glucose, Whole Blood 281 mg/dL (60-115)
[2024-11-27 17:09] LABS: Glucose, Whole Blood 188 mg/dL (60-115)
[2024-11-27 20:00] VITALS: BP 119/77; PULSE 88; TEMP 36.6; O2SAT 98
[2024-11-27 20:03] LABS: Glucose, Whole Blood 209 mg/dL (60-115)
[2024-11-27] MEDS: Insulin Glargine,Hum.rec.anlog 100 UNIT/ML 10 ML VIAL 30 UNIT SUBCUT (20:40)
[2024-11-28 08:00] VITALS: BP 112/72; PULSE 84; RESP 18; TEMP 36.3; O2SAT 99
[2024-11-28 08:20] LABS: Glucose, Whole Blood 206 mg/dL (60-115)
[2024-11-28] MEDS: Metoprolol Succinate ER 100 MG TAB.ER.24H 200 MG PO (08:33)
[2024-11-28] MEDS: Divalproex Sodium ER 250 MG TAB.ER.24H PO (08:35)
[2024-11-28 11:54] LABS: Glucose, Whole Blood 266 mg/dL (60-115)
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
[2024-11-28 17:04] LABS: Glucose, Whole Blood 273 mg/dL (60-115)
[2024-11-28 19:56] LABS: Glucose, Whole Blood 176 mg/dL (60-115)
[2024-11-28 20:00] VITALS: BP 113/60; PULSE 100; RESP 16; TEMP 36.9; O2SAT 98
[2024-11-28] MEDS: Insulin Glargine,Hum.rec.anlog 100 UNIT/ML 10 ML VIAL 30 UNIT SUBCUT (20:10)
--- NOTE | 2024-11-29 00:33 | PC.NURSE ---
Pt POC was 176 @ 2100, refused insulin coverage per sliding scale but took Lantus 30 units.
[2024-11-29 08:00] VITALS: BP 120/72; PULSE 81; TEMP 36.5; O2SAT 98
[2024-11-29 08:09] LABS: Glucose, Whole Blood 162 mg/dL (60-115)
[2024-11-29] MEDS: Metoprolol Succinate ER 100 MG TAB.ER.24H 200 MG PO (08:26)
[2024-11-29] MEDS: Divalproex Sodium ER 250 MG TAB.ER.24H PO (08:28)
[2024-11-29 12:19] LABS: Glucose, Whole Blood 244 mg/dL (60-115)
[2024-11-29 17:04] LABS: Glucose, Whole Blood 258 mg/dL (60-115)
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
[2024-11-29 20:00] VITALS: BP 127/74; PULSE 93; RESP 16; TEMP 36.6; O2SAT 99
[2024-11-29 20:10] LABS: Glucose, Whole Blood 262 mg/dL (60-115)
[2024-11-29] MEDS: Insulin Glargine,Hum.rec.anlog 100 UNIT/ML 10 ML VIAL 30 UNIT SUBCUT (20:41)
[2024-11-30 08:02] LABS: Glucose, Whole Blood 145 mg/dL (60-115)
[2024-11-30] MEDS: Divalproex Sodium ER 250 MG TAB.ER.24H PO (08:04)
[2024-11-30 08:05] VITALS: BP 98/62; PULSE 69; TEMP 36.5; O2SAT 96
[2024-11-30] MEDS: Metoprolol Succinate ER 100 MG TAB.ER.24H 200 MG PO (08:05)
[2024-11-30 12:03] LABS: Glucose, Whole Blood 307 mg/dL (60-115)
[2024-11-30 17:08] LABS: Glucose, Whole Blood 259 mg/dL (60-115)
[2024-11-30 19:55] VITALS: BP 133/74; PULSE 92; RESP 15; TEMP 36.6; O2SAT 98
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
[2024-11-30 20:14] LABS: Glucose, Whole Blood 251 mg/dL (60-115)
[2024-11-30] MEDS: Insulin Glargine,Hum.rec.anlog 100 UNIT/ML 10 ML VIAL 30 UNIT SUBCUT (20:18)
[2024-12-01 07:57] VITALS: BP 117/66; PULSE 84; RESP 16; TEMP 36.3; O2SAT 99
[2024-12-01 07:58] LABS: Glucose, Whole Blood 235 mg/dL (60-115)
[2024-12-01] MEDS: Divalproex Sodium ER 250 MG TAB.ER.24H PO (08:42)
[2024-12-01] MEDS: Metoprolol Succinate ER 100 MG TAB.ER.24H 200 MG PO (08:42)
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
[2024-12-01 12:09] LABS: Glucose, Whole Blood 291 mg/dL (60-115)
[2024-12-01 17:16] LABS: Glucose, Whole Blood 202 mg/dL (60-115)
[2024-12-01 20:00] VITALS: BP 124/73; PULSE 96; RESP 16; TEMP 36.8; O2SAT 97
[2024-12-01] MEDS: Insulin Glargine,Hum.rec.anlog 100 UNIT/ML 10 ML VIAL 30 UNIT SUBCUT (21:32)
[2024-12-01 22:40] LABS: Glucose, Whole Blood 290 mg/dL (60-115)
[2024-12-02 08:21] VITALS: BP 114/62; PULSE 77; TEMP 36; O2SAT 96
[2024-12-02] MEDS: Divalproex Sodium ER 250 MG TAB.ER.24H PO (08:23)
[2024-12-02] MEDS: Metoprolol Succinate ER 100 MG TAB.ER.24H 200 MG PO (08:24)
--- NOTE | 2024-12-02 08:29 | ECG_ITS ---
Test Reason : hx of heart murmur Blood Pressure : */* mmHG Vent. Rate : 73 BPM Atrial Rate : 73 BPM P-R Int : 162 ms QRS Dur : 90 ms QT Int : 402 ms P-R-T Axes : 52 47 193 degrees QTcB Int : 442 ms Normal sinus rhythm ST & Marked T wave abnormality, consider anterolateral ischemia Abnormal ECG No previous ECGs available Referred By: Flaquita Rayo Electronically Signed By: JARRED KHAN MD
--- NOTE | 2024-12-02 08:40 | PC.NURSE ---
Pt had EKG and it is abnormal showing ischemia. Image send priority to provider via [employer] connect. Pending answer.
[2024-12-02 08:42] LABS: Glucose, Whole Blood 180 mg/dL (60-115)
[2024-12-02 11:48] LABS: Glucose, Whole Blood 300 mg/dL (60-115)
[2024-12-02 17:10] LABS: Glucose, Whole Blood 346 mg/dL (60-115)
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
[2024-12-02 20:00] VITALS: BP 128/84; PULSE 89; TEMP 37.4; O2SAT 97
[2024-12-02 21:31] LABS: Glucose, Whole Blood 373 mg/dL (60-115)
[2024-12-02] MEDS: Insulin Glargine,Hum.rec.anlog 100 UNIT/ML 10 ML VIAL 30 UNIT SUBCUT (21:46)
--- NOTE | 2024-12-02 21:50 | PC.NURSE ---
Patient POC of [id number]. Provider Shaniqua Hodges notified and 10 units of insulin lispro administered per order.
[2024-12-03 08:00] VITALS: BP 103/60; PULSE 86; TEMP 35.8; O2SAT 96
[2024-12-03 08:03] LABS: Glucose, Whole Blood 171 mg/dL (60-115)
[2024-12-03] MEDS: Divalproex Sodium ER 250 MG TAB.ER.24H PO (08:47)
[2024-12-03] MEDS: Metoprolol Succinate ER 100 MG TAB.ER.24H 200 MG PO (08:49)
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
[2024-12-03] MEDS: CHLORPROMAZINE HCL 60 MG PO ×3 (10:08→20:28)
[2024-12-03 12:15] LABS: Glucose, Whole Blood 372 mg/dL (60-115)
[2024-12-03 17:10] LABS: Glucose, Whole Blood 319 mg/dL (60-115)
[2024-12-03 19:59] LABS: Glucose, Whole Blood 152 mg/dL (60-115)
[2024-12-03 20:00] VITALS: BP 101/57; PULSE 99; TEMP 36.4; O2SAT 98
[2024-12-03] MEDS: Insulin Glargine,Hum.rec.anlog 100 UNIT/ML 10 ML VIAL 30 UNIT SUBCUT (20:31)
[2024-12-04 08:00] VITALS: BP 110/69; PULSE 84; RESP 16; TEMP 36.2; O2SAT 98
[2024-12-04 08:21] LABS: Glucose, Whole Blood 146 mg/dL (60-115)
[2024-12-04 08:39] LABS: Creatinine Clr Calc Pharmacy 116.3; Estimated Glomerular Filt Rate > 60
[2024-12-04 08:41] LABS: Alanine Aminotransferase 25 U/L (0-40); Albumin Level 4.2 g/dL (3.5-5.0); Alkaline Phosphatase 97 U/L (39-117); Aspartate Amino Transferase 25 U/L (5-37); Total Protein 7.3 g/dL (6.5-8.0)
[2024-12-04] MEDS: CHLORPROMAZINE HCL 60 MG PO ×3 (08:41→20:58)
[2024-12-04] MEDS: Metoprolol Succinate ER 100 MG TAB.ER.24H 200 MG PO (08:42)
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
[2024-12-04 11:29] LABS: Glucose, Whole Blood 352 mg/dL (60-115)
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
[2024-12-04 17:28] LABS: Glucose, Whole Blood 304 mg/dL (60-115)
[2024-12-04 19:56] VITALS: BP 121/68; PULSE 74; TEMP 36.9; O2SAT 97
[2024-12-04 20:12] LABS: Glucose, Whole Blood 167 mg/dL (60-115)
[2024-12-04] MEDS: Divalproex Sodium ER 250 MG TAB.ER.24H 1250 MG PO (20:59)
[2024-12-04] MEDS: Insulin Glargine,Hum.rec.anlog 100 UNIT/ML 10 ML VIAL 30 UNIT SUBCUT (21:00)
[2024-12-05 07:56] LABS: Glucose, Whole Blood 242 mg/dL (60-115)
[2024-12-05 08:00] VITALS: BP 105/60; PULSE 97; TEMP 36.1; O2SAT 98
[2024-12-05] MEDS: CHLORPROMAZINE HCL 60 MG PO (08:38)
[2024-12-05] MEDS: Metoprolol Succinate ER 100 MG TAB.ER.24H 200 MG PO (08:39)
--- NOTE | 2024-12-05 09:57 | PC.NURSE ---
December 01, 2024 at 2011 Tyree Summers was given Lorazepam 1 mg po prn for anxiety, medication was scanned and given, but did not get saved.
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
== END 2024-12-05 11:18 | disposition home or self-care (01) | DRG 750 ==
PROVIDERS: Nurse Practitioner Psychiatric/Mental Health; Admitting Provider Psychiatry & Neurology Psychiatry; Visit Provider Clinical Nurse Specialist Psychiatric/Mental Health, Adult
DX: F20.9 Schizophrenia, unspecified (principal); I42.9 Cardiomyopathy, unspecified; R56.9 Unspecified convulsions; R45.851 Suicidal ideations; I48.91 Unspecified atrial fibrillation; G25.81 Restless legs syndrome; F17.210 Nicotine dependence, cigarettes, uncomplicated; N31.9 Neuromuscular dysfunction of bladder, unspecified; F10.90 Alcohol use, unspecified, uncomplicated; F14.10 Cocaine abuse, uncomplicated; Z71.6 Tobacco abuse counseling; E10.40 Type 1 diabetes mellitus with diabetic neuropathy, unspecified; I10 Essential (primary) hypertension; E78.5 Hyperlipidemia, unspecified; Z79.4 Long term (current) use of insulin; Z79.84 Long term (current) use of oral hypoglycemic drugs; Z79.899 Other long term (current) drug therapy; Z91.148 Patient's other noncompliance with medication regimen for other reason
CPT/HCPCS: 36415; 70450; 72020; 72072; 72125; 72220; 80053; 80061; 80076; 80164; 82565; 82947; 83036; 84439; 84443; 93005; 95816

== ENCOUNTER 2024-11-19 18:07 | Outpatient (BNV) | payer MEDICAID, SELFPAY | END 2024-11-23 02:26 | PROVIDERS: Admitting Provider Psychiatry & Neurology Psychiatry; Visit Provider Radiology Diagnostic Radiology | DX: M50.322 Other cervical disc degeneration at C5-C6 level (principal); R51.9 Headache, unspecified; M51.34 Other intervertebral disc degeneration, thoracic region; M53.3 Sacrococcygeal disorders, not elsewhere classified; M51.369 Other intervertebral disc degeneration, lumbar region without mention of lumbar back pain or lower extremity pain | CPT/HCPCS: 70450; 72020; 72072; 72125; 72220 ==

== ENCOUNTER 2024-11-19 18:07 | Outpatient (BNV) | payer MEDICAID, SELFPAY | END 2024-12-02 08:29 | PROVIDERS: Admitting Provider Psychiatry & Neurology Psychiatry; Visit Provider Internal Medicine Cardiovascular Disease | DX: R94.31 Abnormal electrocardiogram [ECG] [EKG] (principal); R01.1 Cardiac murmur, unspecified | CPT/HCPCS: 93010 ==

== ENCOUNTER → 2024-11-19 18:07 | Outpatient (BNV) | payer MEDICAID, SELFPAY | PROVIDERS: Admitting Provider Psychiatry & Neurology Psychiatry; Visit Provider Physician Assistant | DX: G40.909 Epilepsy, unspecified, not intractable, without status epilepticus (principal) | CPT/HCPCS: 99222; 99499 ==

== ENCOUNTER → 2024-11-19 18:07 | Outpatient (BNV) | payer OTHER, SELFPAY | PROVIDERS: Admitting Provider Psychiatry & Neurology Psychiatry; Visit Provider Nurse Practitioner Family | DX: F20.9 Schizophrenia, unspecified (principal); F14.10 Cocaine abuse, uncomplicated; F10.90 Alcohol use, unspecified, uncomplicated | CPT/HCPCS: 90792; 99231; 99232 ==

== ENCOUNTER → 2024-11-19 18:07 | Outpatient (BNV) | payer MEDICAID, SELFPAY | PROVIDERS: Admitting Provider Psychiatry & Neurology Psychiatry; Visit Provider Psychiatry & Neurology Neurology | DX: G40.909 Epilepsy, unspecified, not intractable, without status epilepticus (principal) | CPT/HCPCS: 99222 ==